=== PATIENT | female | born 1955 | race Caucasian/White ===

== ENCOUNTER → 2019-08-15 | Outpatient (CLI) | payer SELFPAY | PROVIDERS: Visit Provider Nurse Practitioner Family | DX: Z12.31 Encounter for screening mammogram for malignant neoplasm of breast (principal) | CPT/HCPCS: 77067 ==

== ENCOUNTER 2020-09-20 09:15 | Outpatient (CLI) | payer MEDICARE, SELFPAY ==
--- NOTE | 2020-09-20 09:17 | US_ITS ---
WS: [id number] TRANSABDOMINAL PELVIC AND TRANSVAGINAL PELVIC ULTRASOUND HISTORY: PELVIC MASS COMPARISON: None available. Uterus: 6.1 cm x 4.0 cm x 2.0 cm. Normal anteverted uterus. Mass with calcification and shadowing and variable echogenicity in the LEFT lateral uterus measures 2.7 x 2.9 cm. Patient has a known fibroid. Endometrium: 0.4 cm. Poorly visualized but no mass identified. Right ovary: 1.9 cm x 1.9 cm x 1.1 cm. Atrophic ovary. Normal vascularity. Left ovary: 2.5 cm x 1.9 cm x 1.1 cm. Atrophic ovary with normal vascularity. Hypoechoic area within the central cervical canal. Hypoechoic area measures 10 x 5 mm. There is some mild peripheral vascularity. There is a solid mass in the RIGHT upper thigh with a few cystic areas. No significant increased vasc ularity. This mass measures 6.5 x 5.3 cm and is palpable. US/US pelvic with transvaginal IMPRESSION: 1. Normal endometrium. 2. LEFT uterine fibroid measuring 2.7 x 2.9 cm. 3. Solid mass without increased vascularity in the RIGHT upper thigh measures 6.5 x 5.3 cm. Abnormal lymph node or soft tissue nodule such as sarcoma. Metast atic site is not excluded. No prior studies available that included this area f or evaluation. 4. Increased soft tissue in the cervical canal may be a cervical neoplasm.
--- NOTE | 2020-09-20 09:18 | US_ITS ---
WS: [id number] Complete ABDOMINAL ULTRASOUND HISTORY: POLYCYTHEMIA SECONDARY COMPARISON: None available. Liver: 15.6 cm in length. Normal size liver with heterogeneity and coarsened echotexture. No mass or bile duct dilatation. Gallbladder: Normally distended with no gallstones, wall thickening or pericholecystic fluid. Gallbladder wall thickness: 0.2 cm. Pancreas: Normal size and echogenicity. CBD: 0.3 cm. Right kidney: 9.5 cm x 4.2 cm x 4.6 cm. No mass, cortical thickening or hydronephrosis. Left kidney: 9.6 cm x 4.8 cm x 5.0 cm. No mass, cortical thickening or hydronephrosis. Spleen: Normal size and echogenicity. Abdominal aorta and IVC are within normal limits. No ascites. US/US abdomen complete* [id number] IMPRESSION: 1. Normal spleen. 2. Mild hepatic steatosis.
== END 2020-09-20 09:16 | disposition home or self-care (01) ==
PROVIDERS: PCP Nurse Practitioner Family; Visit Provider Nurse Practitioner Family
DX: D75.1 Secondary polycythemia (principal); R19.00 Intra-abdominal and pelvic swelling, mass and lump, unspecified site
CPT/HCPCS: 76700; 76830; 76856

== ENCOUNTER 2020-10-24 10:34 | Outpatient (CLI) | payer MEDICARE, SELFPAY ==
--- NOTE | 2020-10-24 10:39 | MR_ITS ---
WS: [id number] MRI LUMBAR SPINE NONCONTRAST TECHNIQUE: Sagittal T1, T2 and STIR imaging. Axial T1 and T2 imaging. CLINICAL INFORMATION: POST-OPERATIVE PAIN COMPARISON: None. FINDINGS: Mild lumbar curve. No acute compression. No high-grade central canal stenosis. Mild chronic compressi on superior endplate L1-L2: Normal. L2-L3: Minimal annular bulging. Mild facet arthropathy. Spinal canal and foramen are patent. L3-L4: Mild annular bulging with slight narrowing of the subarticular recess bilaterally. Mild left a nd no significant right foraminal narrowing. Moderate facet arthropathy. L4-L5: Mild disc bulging with osteophytic ridging eccentric to the right. Slight impingement on the r ight subarticular recess and traversing right L5 nerve root. Mild right and no significant left nadiya inal narrowing. Moderate facet arthropathy. L5-S1: Left eccentric disc osteophyte complex contacts the far exiting left L5 nerve root. Mild left foraminal narrowing. Right foramen is patent. Mild facet arthropathy. Visualized pelvic bony structures: Normal. Paravertebral soft tissues: Normal. MR/MR lumbar spine wo con* [id number] IMPRESSION: 1. Mild lumbar curve. No acute compression. No high-grade central canal stenos is. 2. Right eccentric disc osteophyte complex L4-5 contacts the exiting right L4 nerve root. Slight impingement traversing right L5 nerve root in the subarticul ar recess. 3. Left eccentric disc osteophyte complex L5-S1 contacts the exiting left L5 n erve root with mild left foraminal narrowing. 4. Moderate facet arthropathy L3-L4 and L4-L5. 5. Mild chronic compression superior endplate L3. 6. Prior left hemilaminectomy L5-S1.
--- NOTE | 2020-10-24 12:10 | CT_ITS ---
WS: [id number] CT pelvis TECHNIQUE: Contrast-enhanced CT of the pelvis with coronal and sagittal reformatted images. CLINICAL INFORMATION: RIGHT GROIN MASS COMPARISON: Ultrasound 2020 DLP: 479.[address] scans at [facility] use at least one of these dose optimization techniques: automat ed exposure control; mA and/or kV adjustment per patient size (includes targeted exams where dose is matched to clinical indication); or iterative reconstruction. FINDINGS: In the right upper thigh there is a low-attenuation ovoid well-circumscribed intramuscular lesion paulina suring 4.3 x 6.1 x 6.4 cm AP by transverse by craniocaudal. This corresponds to lesion seen on the re cent ultrasound. This extends from the right upper quadrant along the inguinal canal into the upper t high. Mild peripheral enhancement. No internal enhancement.This demonstrates low attenuation but has a complex internal appearance on the prior ultrasound. This is nonspecific and differential consider ations include benign and malignant lesions. This can be further evaluated with MRI without and with gadolinium enhancement, surgical resection, or ultrasound-guided biopsy. Differential considerations are broad and include intramuscular myxoma, soft tissue sarcoma, complex hematoma and nerve sheath tu mor. Disc space narrowing worse at C5 S1. Fat-containing umbilical hernia.Calcified uterine fibroid. CT/CT pelvis w con* [id number] IMPRESSION: 1. Right upper thigh well-circumscribed low-attenuation lesion measuring 4.3 x 6.1 x 6.4 cm corresponds to lesion seen on ultrasound. This demonstrates low a ttenuation but has a complex internal appearance on the prior ultrasound. This is nonspecific and differential considerations include benign and malignant les ions. This can be further evaluated with MRI without and with gadolinium enhanc ement, surgical resection, or ultrasound-guided biopsy. 2. Incidental fat-containing umbilical hernia. 3. Calcified uterine fibroid. 4. No inguinal lymphadenopathy. 5. Disc space narrowing L4-L5 and L5-S1.
[2020-10-24 13:11] LABS: Blood Urea Nitrogen 9 mg/dL (8-23)
[2020-10-24] MEDS: iohexol 300 mg/mL 100 mL Btl IV (13:37)
== END 2020-10-24 10:35 | disposition home or self-care (01) ==
LOC: RADSHAW 10:35
PROVIDERS: PCP Nurse Practitioner Family; Visit Provider Nurse Practitioner Family
DX: R19.09 Other intra-abdominal and pelvic swelling, mass and lump (principal); G89.18 Other acute postprocedural pain; D25.9 Leiomyoma of uterus, unspecified; K42.9 Umbilical hernia without obstruction or gangrene
CPT/HCPCS: 36415; 72148; 72193; 82565; 84520; Q9967

== ENCOUNTER → 2020-11-05 15:45 | Outpatient (BNVA) | payer MEDICARE, SELFPAY | PROVIDERS: PCP Nurse Practitioner Family; Visit Provider Obstetrics & Gynecology | DX: N84.1 Polyp of cervix uteri (principal); R87.810 Cervical high risk human papillomavirus (HPV) DNA test positive | CPT/HCPCS: 88305 ==

== ENCOUNTER 2021-01-27 12:16 | Outpatient (CLI) | payer MEDICARE, SELFPAY ==
--- NOTE | 2021-01-27 12:23 | XR_ITS ---
WS: [id number] Exam: XR chest 2V* [id number] Date/Time of Exam: 01/27/2021 12:37 PM Reason For Exam: evaluate for restrictive lung disease No priors. The lungs are hyperinflated and clear. Normal cardiomediastinal structures and regional bony elements . No pleural effusions. XR/XR chest 2V* [id number] IMPRESSION: 1. Pulmonary hyperinflation. No acute process.
[2021-01-27 12:48] LABS: Basophils # 0.1 10^3/uL (0.0-0.1); Basophils % 0.9 %; Eosinophils # 0.1 10^3/uL (0.0-0.8); Eosinophils % 1.9 %; Hematocrit 45.8 % (37.0-47.0); Hemoglobin 13.9 g/dL (11.5-15.3); Lymphocytes # 1.9 10^3/uL (0.8-4.8); Lymphocytes % 27.7 %; Mean Corpuscular HGB Conc 30.3 g/dL (30.0-36.0); Mean Corpuscular Volume 82.5 fL (81-99); Mean Platelet Volume 10.3 fL (7.4-10.4); Monocytes # 0.5 10^3/uL (0.2-0.9); Neutrophils # 4.35 10^3/uL (1.8-7.7); Neutrophils % 62.2 %; Nucleated Red Blood Cells % 0 %; Platelet Count 342 10^3/cmm (130-400); Red Blood Count 5.55 10^6/uL (4.1-5.3)
[2021-01-27 21:45] LABS: NT Pro B Type Natriuretic Pept 61 pg/mL (0-125)
[2021-01-28 17:33] LABS: Alternaria Alternata (M6) Ige <0.10 kU/L; Alternaria Class 0; Bermuda Class 0; Bermuda Grass (G2) Ige <0.10 kU/L; Cat Dander (E1) Ige <0.10 kU/L; Cat Dander Class 0; Common Ragweed (Short) (W1) Ig <0.10 kU/L; D. Farinae Class 0; Dermatophagoides Class 0; Dermatophagoides Farinae (D2) <0.10 kU/L; Dermatophagoides Pteronyssinus <0.10 kU/L; Dog Dander (E5) Ige <0.10 kU/L; Dog Dander Class 0; Elm (T8) Ige <0.10 kU/L; Elm Class 0; English Plantain (W9) Ige <0.10 kU/L; English Plantain Class 0; House Dust (Greer) (H1) Ige <0.10 kU/L; House Dust (Hollister- Stier) <0.10 kU/L; House Dust Class 0; Immunoglobulin E 134 kU/L (<OR=114); Immunoglobulin E 148 kU/L (<OR=114); Johnson Grass (G10) Ige <0.10 kU/L; Johnson Grass Cl 0; June Grass Class 0; June Grass(Kentucky Blue) (G8) <0.10 kU/L; Lamb'S Quarters (Goose Foot) <0.10 kU/L; Lamb'S Quarters Class 0; Maple (Box Elder) (T1) Ige <0.10 kU/L; Maple Class 0; Meadow Fescue (G4) Ige <0.10 kU/L; Meadow Fescue Class 0; Mucor Racemosus Class 0; Oak (T7) Ige <0.10 kU/L; Oak Class 0; Orchard Grass (Cocksfoot) (G3) <0.10 kU/L; Penicillium Class 0; Penicillium Notatum (M1) Ige <0.10 kU/L; Perennial Rye Grass (G5) Ige <0.10 kU/L; Perennial Rye Grass Class 0; Ragweeed Class 0; Rough Marsh Elder (W16) Ige <0.10 kU/L; Rough Marsh Elder Class 0; Sweet Vernal Class 0; Sweet Vernal Grass (G1) Ige <0.10 kU/L; Timothy Grass (G6) Ige <0.10 kU/L; Timothy Grass Class 0
[2021-01-30 19:07] LABS: Aspergillus Fumigatus, Igg Ab, 29.8 mg/L (<=102)
== END 2021-01-27 12:17 | disposition home or self-care (01) ==
PROVIDERS: PCP Nurse Practitioner Family; Visit Provider Internal Medicine Pulmonary Disease
DX: R06.00 Dyspnea, unspecified (principal); R06.02 Shortness of breath; X02.1XXS Exposure to smoke in controlled fire in building or structure, sequela; Z77.120 Contact with and (suspected) exposure to mold (toxic); I34.1 Nonrheumatic mitral (valve) prolapse
CPT/HCPCS: 36415; 71046; 82785; 83880; 85025; 86003; 86331; 86606; 86609

== ENCOUNTER 2021-02-05 08:22 | Outpatient (CLI) | payer MEDICARE, SELFPAY ==
--- NOTE | 2021-02-05 08:44 | MR_ITS ---
WS: [id number] INDICATION: Right groin mass TECHNIQUE: MRI the pelvis without and with gadolinium enhancement. Axial T1 and T2 and STIR imaging. Coronal T1 STIR and T2 fat sat imaging. Post gadolinium multiplanar imaging was obtained with fat sat uration technique. FINDINGS: Comparison CT pelvis October 24, 2020. Again seen is a well-circumscribed intramuscular lesion in the right upper thigh today measuring 5.7 x 4.4 x 6.2 cm with no significant change since the prior CT. This lesion demonstrates intense T2 sig nal with enhancing internal septations. Heterogeneous internal enhancement consistent with soft tissu e components. Small amount of nonenhancing cystic change peripherally. This lesion appears relatively well encapsulated. No significant edema in the surrounding musculature. Mild tapering along the anterior posterior aspec ts of the lesion with enhancing tail directed towards the neurovascular bundle. Primary differential considerations include nerve sheath tumor such as schwannoma. Additional considerations include intra muscular myxoma or soft tissue sarcoma. Recommend surgical consultation for tissue sampling and/or removal removal. Femoral vessels are displ aced laterally about the lesion. A few normal sized inguinal lymph nodes. No inguinal lymphadenopathy . No free fluid in the pelvis. Normal bone marrow signal. No pelvic lymphadenopathy. Calcified uterin e fibroid eccentric to the right. IMPRESSION 1. T2 hyperintense enhancing soft tissue mass in the right upper thigh is unchanged in size measurin g 5.7 x 4.4 x 6.2 cm. Associated internal soft tissue enhancement. Tapering along the anterior fire sprinkler apparatus inspector ior aspects of the lesion with enhancing tail directed towards the neurovascular bundle 2. Most likely consideration is a peripheral nerve sheath tumor such as schwannoma. Additional consi derations include intramuscular myxoma or soft tissue sarcoma. Recommend surgical consult for tissue sampling and/or removal. 3. No inguinal lymphadenopathy. 4. Calcified uterine fibroid.
[2021-02-05] MEDS: gadobenate dimeglumine 20 mL vial IV (10:00)
== END 2021-02-05 08:23 | disposition home or self-care (01) ==
PROVIDERS: PCP Nurse Practitioner Family; Visit Provider Nurse Practitioner Family
DX: R19.09 Other intra-abdominal and pelvic swelling, mass and lump (principal); D25.9 Leiomyoma of uterus, unspecified
CPT/HCPCS: 72197; A9577

== ENCOUNTER → 2021-02-07 11:39 | Outpatient (BNVA) | payer MEDICARE, SELFPAY | PROVIDERS: PCP Nurse Practitioner Family; Visit Provider Internal Medicine Pulmonary Disease | DX: R06.02 Shortness of breath (principal); X02.1XXS Exposure to smoke in controlled fire in building or structure, sequela | CPT/HCPCS: 87635 ==

== ENCOUNTER 2021-02-13 12:00 | Outpatient (CLI) | payer MEDICARE, SELFPAY | END 2021-02-13 12:01 | disposition home or self-care (01) | LOC: SLEEP 02-14 12:00 | PROVIDERS: PCP Nurse Practitioner Family; Visit Provider Internal Medicine Pulmonary Disease | DX: G47.34 Idiopathic sleep related nonobstructive alveolar hypoventilation (principal); R06.83 Snoring; R53.83 Other fatigue; G47.33 Obstructive sleep apnea (adult) (pediatric) | CPT/HCPCS: G0399 ==

== ENCOUNTER 2021-02-13 12:13 | Outpatient (CLI) | payer MEDICARE, SELFPAY ==
--- NOTE | 2021-02-13 14:06 | PFTS_ITS ---
Date of Study:02/13/21 Date of Dictation: MECHANICS: Forced vital capacity (FVC) is normal. Forced expiratory volume in one second (FEV1) is normal. FEV1/FVC is normal. FLOW VOLUME LOOP: Mild scooping. LUNG VOLUMES: Total lung capacity (TLC) is increased. Residual volume (RV) is increased. DIFFUSING CAPACITY FOR CARBON MONOXIDE: Normal. INTERPRETATION: The postbronchodilator spirometry is normal. There is no significant postbronchodilator response. Lung volumes are consistent with hyperinflation and air trapping. Gas exchange (DLCO) is normal. MTDD
--- NOTE | 2021-02-13 14:07 | MECH_ITS ---
Date of Study:02/13/21 Date of Dictation: Methacholine challenge test: INTERPRETATION: Negative MTDD
== END 2021-02-13 12:14 | disposition home or self-care (01) ==
LOC: RT 12:18
PROVIDERS: PCP Nurse Practitioner Family; Visit Provider Internal Medicine Pulmonary Disease
DX: R06.00 Dyspnea, unspecified (principal)
CPT/HCPCS: 94060; 94070; 94618; 94726; 94729; J7611; J7674

== ENCOUNTER 2022-07-16 13:44 | Outpatient (CLI) | payer MEDICARE, SELFPAY ==
--- NOTE | 2022-07-16 13:58 | MM_ITS ---
WS: [id number] BILATERAL 3D TOMOSYNTHESIS DIGITAL SCREENING MAMMOGRAPHY WITH CAD CLINICAL INFORMATION: SCREENING HISTORY: Screening mammogram. No current complaints. COMPARISON: August 15, 2019 TECHNIQUE: Bilateral CC and MLO views. FINDINGS: The breasts are composed of heterogeneous fibroglandular density tissue, which can limit the detectio n of small underlying mass lesions. No suspicious mass, asymmetry, calcifications, or architectural d istortion. No evidence of malignancy. Stable calcified 7 mm nodule upper outer LEFT breast. MM/[place] [id number] IMPRESSION: BI-RADS: 2-Benign FOLLOW UP: 1 Year Follow-up Recommend return to annual screening mammography.
== END 2022-07-16 13:45 | disposition home or self-care (01) ==
LOC: RAD 13:50
PROVIDERS: PCP Nurse Practitioner Family; Visit Provider Nurse Practitioner Family
DX: Z12.31 Encounter for screening mammogram for malignant neoplasm of breast (principal)
CPT/HCPCS: 77063; 77067

== ENCOUNTER 2022-09-10 13:06 | Outpatient (CLI) | payer MEDICARE, SELFPAY ==
--- NOTE | 2022-09-10 13:14 | MR_ITS ---
WS: [id number] MRI ABDOMEN without CONTRAST. COMPARISON: None Multiplanar, multisequence imaging is performed without contrast. Liver is moderately enlarged. Mild diffuse hepatic steatosis. No mass on this unenhanced exam. No johnathan e duct dilatation. Gallbladder is normally distended. Spleen is normal size at 11.3 cm in length. No adrenal mass is identified. Kidneys are normal in size and attenuation. No obstruction. No perinephri c fluid. No adenopathy. No abnormality at the lung bases. MR/MR abdomen wo con [id number] IMPRESSION: 1. Mild hepatomegaly and hepatic steatosis. 2. No bile duct dilatation. 3. No ascites or adenopathy.
--- NOTE | 2022-09-10 13:14 | MR_ITS ---
WS: [id number] MRI PELVIS with and without CONTRAST. COMPARISON: 02/05/2021 Multiplanar, multisequence imaging is performed with and without contrast. MultiHance 15 mL IV. Again identified is a well-circumscribed heterogeneous mass centered within the muscles of the RIGHT upper thigh. There is displacement of the adjacent femoral vessels in the soft tissues. Masses of anyi iable signal. Nearly isointense to muscle on the T1 sequence. On the T2 sequences very bright mass wi th a few septations throughout the mass. There is a small amount of edema adjacent to the muscle bund le. On the postcontrast imaging there is intermediate enhancement. There is a focal nodule of intense enhancement measuring 1.1 x 1.0 cm which was not present on prior studies. Mass versus towards the RIGHT inguinal region and measures 5.5 x 6.5 cm and extends over a length of 8.2 cm. Mass is measuring slightly greater in size as compared to prior studies. Exophytic mixed signal and enhancing mass from the posterior uterus consistent with a fibroid measuri ng 3.6 x 3.0 cm. There is no ascites or adenopathy within the pelvis. MR/MR pelvis wo/w con [id number] IMPRESSION: 1. Solid enhancing mass centered in the RIGHT groin is reidentified. Mass has slightly increased in size now measuring 5.5 x 6.5 x 8.2 cm. There is slight ch irma in the enhancement pattern. New focal hyperintense enhancing nodule measur ing 1.1 x 1.0 cm now present within the mass. Consider evaluation for surgical removal due to the interval change. Differential remains the same as previously described. 2. No adjacent adenopathy and no ascites. 3. Fibroid uterus.
[2022-09-10] MEDS: gadobenate dimeglumine 20 mL vial IV (15:53)
== END 2022-09-10 13:07 | disposition home or self-care (01) ==
LOC: RAD 13:08
PROVIDERS: PCP Nurse Practitioner Family; Visit Provider Nurse Practitioner Family
DX: R19.00 Intra-abdominal and pelvic swelling, mass and lump, unspecified site (principal)
CPT/HCPCS: 72197; 74181; A9577

== ENCOUNTER 2022-12-17 13:23 | Outpatient (CLI) | payer MEDICARE, SELFPAY ==
--- NOTE | 2022-12-17 13:35 | USCV_ITS ---
Zulay Bridges Age: 67 Gender: F : 1955 Exam Date: 12/17/2022 13:53 Ordering Phys: Pearl Lofton Technologist: Exam Location: [facility] [place] Indication: murmur BP: 125 / 70 HR: 108 Rhythm: Sinus Technical Quality: Adequate MEASUREMENTS (Male / Female) Normal Values 2D ECHO LV Diastolic Diameter PLAX 3.9 cm 4.2 - 5.9 / 3.9 - 5.3 cm LV Systolic Diameter PLAX 2.0 cm IVS Diastolic Thickness 0.9 cm 0.6 - 1.0 / 0.6 - 0.9 cm IVS Systolic Thickness 1.8 cm LVPW Diastolic Thickness 1.0 cm 0.6 - 1.0 / 0.6 - 0.9 cm LVPW Systolic Thickness 1.3 cm LVOT Diameter 2.0 cm LV Ejection Fraction 2D Teich 79.4 % LV Ejection Fraction MOD 2C 59.5 % LV Ejection Fraction 2C AL 61.1 % LA Diameter 3.5 cm M-MODE Aortic Annulus Diameter 3.1 cm LA Ao Ratio MM 1.4 MV E Point Septal Separation 0.6 cm DOPPLER AV Peak Velocity 180.0 cm/s LVOT Peak Velocity 139.0 cm/s AV Area Cont Eq vti 3.0 cm squared AV Area Cont Eq pk 2.4 cm squared MV Area PHT 5.0 cm squared Mitral E to A Ratio 0.8 MV E' Velocity 53.8 cm/s Mitral E to MV E' Ratio 7.0 Mitral E to LV E' Lateral Ratio 6.8 Mitral E to LV E' Septal Ratio 7.1 TR Peak Velocity 136.0 cm/s TR Peak Gradient 7.4 mmHg TV Peak E Velocity 89.0 cm/s Right Atrial Pressure 3.0 mmHg Pulmonary Artery Systolic Pressu 10.4 mmHg FINDINGS Left Ventricle Left ventricle is normal in size. LV systolic function is normal with EF of 60 to 65%. No regional wall motion normalities are seen. Grade 1 diastolic dysfunction Right Ventricle Normal in size and function Right Atrium Normal in size Left Atrium Normal in size Mitral Valve Structurally normal mitral valve. Mild mitral regurgitation. Aortic Valve Structurally normal aortic valve. No significant stenosis or regurgitation. Tricuspid Valve Mild tricuspid regurgitation. Insufficient TR jet to calculate RVSP Pulmonic Valve Not well-visualized. Mild pulmonic regurgitation. Pericardium Normal Aorta Normal in size IVC Appears to be normal CONCLUSIONS LV systolic function is normal with EF of 60 to 65% Grade 1 diastolic dysfunction Mild mitral regurgitation Mild tricuspid regurgitation Mild pulmonic regurgitation No comparison studies are available Rogelio Gaming MD (Electronically Signed) Final Date: 02 Jan 2023 10:30 S
== END 2022-12-17 13:24 | disposition home or self-care (01) ==
LOC: RAD 13:30
PROVIDERS: PCP Nurse Practitioner Family; Visit Provider Nurse Practitioner Family
DX: R01.1 Cardiac murmur, unspecified (principal); I50.30 Unspecified diastolic (congestive) heart failure; I34.0 Nonrheumatic mitral (valve) insufficiency; I07.1 Rheumatic tricuspid insufficiency; I37.1 Nonrheumatic pulmonary valve insufficiency
CPT/HCPCS: 93306

== ENCOUNTER → 2023-06-22 07:42 | Outpatient (BNVA) | payer MEDICARE, SELFPAY | PROVIDERS: PCP Nurse Practitioner Family; Visit Provider Psychiatry & Neurology Neurology | DX: R41.3 Other amnesia (principal); R55 Syncope and collapse | CPT/HCPCS: 36415; 82542; 86146; 99203 ==

== ENCOUNTER 2023-07-29 13:24 | Outpatient (CLI) | payer MEDICARE, SELFPAY ==
--- NOTE | 2023-07-29 13:45 | MR_ITS ---
WS: [id number] MRI HEAD WITHOUT CONTRAST TECHNIQUE: Sagittal T1, T2 axial, T2 axial FLAIR, axial and coronal T1 images, axial susceptibility w eighted imaging, axial diffusion weighted images, and coronal T2 images were obtained. CLINICAL INFORMATION: R41.3 - Other amnesia COMPARISON: None. FINDINGS: No evidence of restricted diffusion to suggest acute ischemia. Ventricular system and basilar cistern s are patent. Minimal small vessel changes. Mild parenchymal volume loss. Normal posterior fossa. Nor mal vascular flow voids at the skull base. No extra-axial fluid collections. No evidence of mass or m ass effect. Paranasal sinuses are well aerated. Normal posterior nasopharynx. Normal parapharyngeal fat. Mastoid air cells are well aerated. No hemosiderin on the susceptibility weighted images. Normal optic chiasm and pituitary infundibulum. Temporal lobes and hippocampal formations are normal in appearance. IMPRESSION: 1. No evidence of restricted diffusion to suggest acute ischemia. 2. Minimal small vessel changes. Mild parenchymal volume loss. 3. Temporal lobes and hippocampal formations are normal in appearance. 4. No hemosiderin on susceptibly weighted images. 5. No other suspicious findings.
== END 2023-07-29 13:25 | disposition home or self-care (01) ==
PROVIDERS: PCP Nurse Practitioner Family; Visit Provider Psychiatry & Neurology Neurology
DX: R41.3 Other amnesia (principal)
CPT/HCPCS: 70551

== ENCOUNTER 2023-08-05 13:07 | Outpatient (CLI) | payer MEDICARE, SELFPAY ==
--- NOTE | 2023-08-05 13:15 | USCV_ITS ---
Zulya Bridges Age: 68 Gender: F : 1955 Exam Date: 08/05/2023 13:12 Ordering Phys: Donal Flynn MD Technologist: LIZZIE Exam Location: [facility] [place] Indication: Syncope Risk Factors: Previous Vascular Surgery: Right Brachial BP: / Left Brachial BP: / Right Left Velocity (cm/s) Spectral Plaque Velocity (cm/s) Spectral Plaque Syst/Diast Broadening Syst/Diast Broadening 104.70/20.90 Prox CCA 118.10/ 37.30 99.90/ 29.10 Mid CCA 114.80/ 39.10 82.20/ 23.90 Distal CCA 108.50/ 32.80 51.60/ 11.30 Prox ICA 59.70 / 16.70 78.50/ 22.50 Mid ICA 102.10/ 34.90 106.00/42.70 Distal ICA 119.60/ 45.90 135.60 ECA 104.70 1.01 ICA/CCA 1.01 Antegrade Vertebral Antegrade 102.4/ 24.40 cm/s 65.70/ 22.30 cm/s 0 Tri Subclavian Tri 158.4 108.1 0 0 CONCLUSIONS Right ICA stenosis <50%. Mild atheromatous plaque right carotid bulb/ICA. Left ICA stenosis <50%. Mild atheromatous plaque left carotid bulb/ICA. Intimal thickening in the common carotid arteries and internal carotid arteries bilaterally. Normal antegrade Doppler flow noted in the right vertebral artery. Normal antegrade Doppler flow noted in the left vertebral artery. Gentry Bryant MD (Electronically Signed) Final Date: 06 August 2023 12:18 S
== END 2023-08-05 13:08 | disposition home or self-care (01) ==
LOC: RAD 13:07
PROVIDERS: PCP Nurse Practitioner Family; Visit Provider Psychiatry & Neurology Neurology
DX: R55 Syncope and collapse (principal); R41.3 Other amnesia; I65.23 Occlusion and stenosis of bilateral carotid arteries
CPT/HCPCS: 93880

== ENCOUNTER 2023-09-02 13:14 | Outpatient (CLI) | payer MEDICARE, SELFPAY ==
--- NOTE | 2023-09-02 13:26 | MM_ITS ---
WS: [id number] BILATERAL SCREENING DIGITAL TOMOSYNTHESIS MAMMOGRAM WITH CAD HISTORY: SCREEN COMPARISON: 07/16/2022, 08/15/2019 Bilateral CC and MLO views with tomosynthesis and synthetic mammography submitted. Computer aided det ection analyzed. Breast composition: The breasts are heterogeneously dense, which may obscure small masses. No suspici ous masses, microcalcifications or architectural distortion. Long-term stability partially calcified mass in the upper outer quadrant of the LEFT breast. This is probably a partially calcified fibroaden mariela. IMPRESSION: MM/[place] [id number] BI-RADS: 2-Benign FOLLOW UP: 1 Year Follow-up
== END 2023-09-02 13:15 | disposition home or self-care (01) ==
LOC: RAD 13:14
PROVIDERS: PCP Nurse Practitioner Family; Visit Provider Nurse Practitioner Family
DX: Z12.31 Encounter for screening mammogram for malignant neoplasm of breast (principal)
CPT/HCPCS: 77063; 77067

== ENCOUNTER 2023-09-16 13:20 | Outpatient (CLI) | payer MEDICARE, SELFPAY ==
--- NOTE | 2023-09-16 13:36 | MR_ITS ---
WS: [id number] MRI LUMBAR SPINE NONCONTRAST TECHNIQUE: Sagittal T1, T2 and STIR imaging. Axial T1 and T2 imaging. CLINICAL INFORMATION: CHRONIC BILATERAL LOW BACK PAIN W/BILATERAL SCIATICA COMPARISON: 10/24/2020. FINDINGS: Lumbar curve. No acute compression. No high-grade central canal stenosis. Mild chronic anterior wedgi ng at L3 unchanged compared to previous. Prior LEFT hemilaminectomy L5-S1. L1-L2: Normal. L2-L3: Mild annular bulging with slight effacement of the ventral thecal sac. Mild facet arthropathy. Spinal canal and foramen are patent. L3-L4: Mild annular bulging. Slight narrowing of the subarticular recess bilaterally. This is unchang ed compared to previous. Moderate facet arthropathy. Mild LEFT foraminal narrowing. L4-L5: Shallow central protrusion with slight narrowing of the subarticular recess bilaterally. Moder ate facet arthropathy. Mild RIGHT foraminal narrowing with slight contact of the exiting RIGHT L4 ner ve root. LEFT foramen is patent. L5-S1: Mild annular bulging. Moderate facet arthropathy. Mild LEFT and no significant RIGHT foraminal narrowing. Prior LEFT laminectomy. Slight encroachment on traversing LEFT S1 nerve root unchanged. Visualized pelvic bony structures: Normal. Paravertebral soft tissues: Normal. IMPRESSION: 1. Mild lumbar curve. No acute compression. Prior LEFT hemilaminectomy L5-S1. 2. Chronic compression superior plate L3 with endplate Schmorl's node unchanged. 3. Mild annular bulging L3-4 with slight impingement subarticular recess and traversing L4 nerve ro ots bilaterally. Mild LEFT L3-4 foraminal narrowing. 4. Shallow central protrusion L4-5 with impingement traversing L5 nerve roots bilaterally. This is u nchanged compared to previous. Mild RIGHT L4-5 foraminal narrowing slightly contacts the exiting RIGH T L4 nerve root. This appears slightly progressed. 5. Mild disc bulging with osteophytic ridging L5-S1 with slight contact of the LEFT S1 nerve root an d exiting LEFT L5 nerve root unchanged compared to previous. Mild to moderate LEFT L5-S1 foraminal na rrowing.
== END 2023-09-16 13:21 | disposition home or self-care (01) ==
LOC: RAD 13:20
PROVIDERS: PCP Nurse Practitioner Family; Visit Provider Family Medicine
DX: M54.42 Lumbago with sciatica, left side (principal); M54.41 Lumbago with sciatica, right side; G89.29 Other chronic pain; M51.16 Intervertebral disc disorders with radiculopathy, lumbar region
CPT/HCPCS: 72148

== ENCOUNTER → 2023-10-05 13:17 | Outpatient (BNVA) | payer MEDICARE, SELFPAY | PROVIDERS: PCP Nurse Practitioner Family; Visit Provider Psychiatry & Neurology Neurology | DX: G31.84 Mild cognitive impairment of uncertain or unknown etiology (principal) | CPT/HCPCS: 99212 ==

== ENCOUNTER 2025-02-08 12:41 | Outpatient (CLI) | payer MEDICARE, SELFPAY ==
--- NOTE | 2025-02-08 12:55 | MR_ITS ---
WS: [id number] MRI of the pelvis without gadolinium enhancement INDICATION: RIGHT groin mass TECHNIQUE: Coronal T1 STIR axial T1 and T2 and sagittal T2 imaging FINDINGS: Some images through the hips are degraded due to motion and wrap artifact. Previously described RIGHT groin femoral mass is no longer visualized and has presumably been resected in the interim. No lymphadenopathy. Gadolinium not administered today. No visualized recurrent mass or lesion. No inguinal lymphadenopathy. Advanced degenerative arthritis both hips with subchondral cystic change and edema in both femoral heads. Edema in the acetabulum bilaterally with hypertrophic changes. Normal bone marrow signal in the sacrum. Normal pubic rami. Tiny fat-containing umbilical hernia. No other acute findings. MR/MR pelvis wo con* [id number] IMPRESSION: 1. Previous described RIGHT groin mass is no longer visualized and has presuma bharati been removed in the interim. No visualized residual or recurrent lesion 2. No inguinal lymphadenopathy. 3. Advanced degenerative arthritis both hips with subchondral edema in the fem oral heads RIGHT greater than LEFT. Suspected developing osteonecrosis in the R IGHT greater than LEFT femoral heads. Recommend orthopedic consult. 4. Fibroid uterus.
== END 2025-02-08 12:42 | disposition home or self-care (01) ==
LOC: RAD 12:42
PROVIDERS: PCP Nurse Practitioner Family; Visit Provider Pain Medicine Interventional Pain Medicine
DX: R10.2 Pelvic and perineal pain (principal); M16.0 Bilateral primary osteoarthritis of hip; D25.9 Leiomyoma of uterus, unspecified
CPT/HCPCS: 72195

== ENCOUNTER 2025-07-26 12:09 | Outpatient (CLI) | payer MEDICARE, SELFPAY ==
--- NOTE | 2025-07-26 12:18 | XR_ITS ---
WS: [id number] XR hip LT 2-3V wo/w pel* [id number] REASON FOR EXAM: S/P L HIP REPLACEMENT FINDINGS: Total left hip arthroplasty. Components of the arthroplasty are intact and in proper position and alignment unchanged compared to 07/26/2025. XR/XR hip LT 2-3V wo/w pel* [id number] IMPRESSION: Stable total left hip arthroplasty.
== END 2025-07-26 12:10 | disposition home or self-care (01) ==
LOC: RAD 12:11
PROVIDERS: PCP Nurse Practitioner Family
DX: Z96.642 Presence of left artificial hip joint (principal)
CPT/HCPCS: 73502